=== PATIENT | male | born 1965 | race Caucasian/White ===

== ENCOUNTER 2021-08-01 15:27 | Emergency (ER) | payer OTHER, MEDICAID ==
[~2021-08-01] VITALS: Ht 177.8 cm; Wt 79.4 kg
--- NOTE | 2021-08-01 15:40 | NUR ---
ATTEMPTED TO CALL PT IN LOBBY, NO ANSWER
[2021-08-01 16:10] VITALS: BP 161/124
--- NOTE | 2021-08-01 16:14 | NUR ---
PT TO AWAIT IN LOBBY
--- NOTE | 2021-08-01 16:30 | NUR ---
PT TAKEN TO XRAY VIA W/C
--- NOTE | 2021-08-01 16:36 | NUR ---
PT RETURNED FROM XRAY
[2021-08-01] MEDS ORDERED: KETOROLAC 30 MG/ML VIAL IM ONE (16:40)
[2021-08-01] MEDS ORDERED: CYCL-711 PO (16:46)
[2021-08-01] MEDS ORDERED: NAPR-54 PO (16:46)
[2021-08-01] MEDS ORDERED: ACET-8386 PO (16:53)
--- NOTE | 2021-08-01 16:55 | NUR ---
55 Y/O MALE C/O LT SHOULDER PAIN X3 DAYS. PT WAS CLEANING YARD AND FELT PAIN AFTER. DENIES ANY FALL. PT STATES 8/10 PAIN. RX: IBUPROFEN WITH NO RELIEF MEDHX: [facility]
[2021-08-01 17:22] VITALS: BP 161/124
--- NOTE | 2021-08-01 17:22 | NUR ---
Patient discharged with v/s stable. Written and verbal after care instructions given and explained. Patient alert, oriented and verbalized understanding of instructions. Ambulatory with steady gait. All questions addressed prior to discharge. ID band removed. Patient advised to follow up with PMD. Rx of HYDROCODONE/ACETAMINOPHEN given. Patient educated on indication of medication including possible reaction and side effects. Opportunity to ask questions provided and answered.
== END 2021-08-01 17:22 | disposition home or self-care (01) ==
LOC: MED 15:27
DX: M25.512 Pain in left shoulder (principal); Z79.891 Long term (current) use of opiate analgesic
CPT/HCPCS: 73030; 96372; 99283; J1885

== ENCOUNTER 2022-11-13 03:29 | Emergency (ER) | payer OTHER, MEDICAID ==
[~2022-11-13 03:29] MED LIST: ACET-8905 PO
--- NOTE | 2022-11-13 03:45 | NUR ---
PATIENT CALL TO TRIAGE , NO RESPONSE PATIENT LEFT WITHOUT BEING SEEN BY DR. CORDOBA. NO FURTHER CARE PROVIDED FOR PATIENT.
--- NOTE | 2022-11-13 03:50 | NUR ---
CALLED FOR THE SECOND TIME, NO RESPONSE
--- NOTE | 2022-11-13 04:00 | NUR ---
CALLED FOR THE THE THIRD TIME , NO RESPONSE
== END 2022-11-13 03:45 | disposition left against medical advice (07) ==
LOC: MED 03:29
DX: R11.0 Nausea (principal); Z53.21 Procedure and treatment not carried out due to patient leaving prior to being seen by health care provider

== ENCOUNTER 2023-07-03 11:59 | Emergency (ER) | payer OTHER, MEDICAID ==
[~2023-07-03] VITALS: Ht 177.8 cm; Wt 73.5 kg
[2023-07-03 12:14] VITALS: BP 137/62; PULSE 68; RESP 18; TEMP 97.4; O2SAT 99
[2023-07-03] MEDS ORDERED: OFLO5SOL27 RIGHT EAR (14:33)
[2023-07-03 15:20] VITALS: BP 137/62; PULSE 68; RESP 18; TEMP 97.4; O2SAT 99
== END 2023-07-03 15:20 | disposition home or self-care (01) ==
LOC: MED 11:59
DX: H61.23 Impacted cerumen, bilateral (principal); H60.91 Unspecified otitis externa, right ear; Z79.899 Other long term (current) drug therapy; Z79.2 Long term (current) use of antibiotics
CPT/HCPCS: 99283

== ENCOUNTER 2023-11-09 14:52 | Emergency (ER) | payer OTHER, MEDICAID ==
[~2023-11-09] VITALS: Ht 177.8 cm; Wt 73.5 kg
[~2023-11-09 14:52] MED LIST changes: +OFLO5SOL27 RIGHT EAR
[2023-11-09 14:57] VITALS: BP 152/94; PULSE 65; RESP 19; TEMP 97.6; O2SAT 100
[2023-11-09] MEDS ORDERED: AMOX1TAB8 PO (15:28)
[2023-11-09] MEDS: ACETAMINOPHEN EXTRA STRENGTH 500 MG TAB PO ONE (15:47)
[2023-11-09] MEDS: KETOROLAC 30 MG/ML VIAL IM ONE (15:48)
== END 2023-11-09 16:11 | disposition home or self-care (01) ==
LOC: MED 14:52
DX: H66.91 Otitis media, unspecified, right ear (principal); Z79.899 Other long term (current) drug therapy
CPT/HCPCS: 99283; J1885